=== PATIENT | female | born 1935 | race Caucasian/White ===

== ENCOUNTER 2016-08-06 09:54 | Outpatient (CLI) | payer MEDICARE ==
[2016-08-06 10:22] LABS: Prothrombin Time 27.9 SEC (12.0-14.7)
== END 2016-08-06 09:55 | disposition home or self-care (01) ==
LOC: BURLAB 09:54
PROVIDERS: ATTEND Nurse Practitioner
DX: I48.0 Paroxysmal atrial fibrillation (principal)
CPT/HCPCS: 36415; 85610

== ENCOUNTER 2016-09-03 09:44 | Outpatient (CLI) | payer MEDICARE ==
[2016-09-03 10:05] LABS: Prothrombin Time 36.6 SEC (12.0-14.7)
== END 2016-09-03 09:45 | disposition home or self-care (01) ==
LOC: BURLAB 09:44
PROVIDERS: ATTEND Nurse Practitioner
DX: I48.0 Paroxysmal atrial fibrillation (principal)
CPT/HCPCS: 36415; 85610

== ENCOUNTER 2016-09-12 11:11 | Outpatient (CLI) | payer MEDICARE ==
[2016-09-12 11:44] LABS: Prothrombin Time 23.7 SEC (12.0-14.7)
== END 2016-09-12 11:12 | disposition home or self-care (01) ==
LOC: BURLAB 11:11
PROVIDERS: ATTEND Nurse Practitioner
DX: I48.0 Paroxysmal atrial fibrillation (principal)
CPT/HCPCS: 36415; 85610

== ENCOUNTER 2016-09-26 09:38 | Outpatient (CLI) | payer MEDICARE ==
[2016-09-26 10:04] LABS: Prothrombin Time 24.1 SEC (12.0-14.7)
== END 2016-09-26 09:39 | disposition home or self-care (01) ==
LOC: BURLAB 09:38
PROVIDERS: ATTEND Nurse Practitioner
DX: I48.0 Paroxysmal atrial fibrillation (principal)
CPT/HCPCS: 36415; 85610

== ENCOUNTER 2016-10-19 09:37 | Outpatient (CLI) | payer MEDICARE, OTHER ==
[2016-10-19 10:03] LABS: INR-International Normal Ratio 2.2; Prothrombin Time 24.4 SEC (12.0-14.7)
== END 2016-10-19 09:38 | disposition home or self-care (01) ==
LOC: BURLAB 09:37
PROVIDERS: ATTEND Nurse Practitioner
DX: I48.0 Paroxysmal atrial fibrillation (principal)
CPT/HCPCS: 36415; 85610

== ENCOUNTER 2016-11-14 09:12 | Outpatient (CLI) | payer MEDICARE, OTHER ==
[2016-11-14 09:37] LABS: INR-International Normal Ratio 1.9; Prothrombin Time 22.1 SEC (12.0-14.7)
== END 2016-11-14 09:13 | disposition home or self-care (01) ==
LOC: BURLAB 09:12
PROVIDERS: ATTEND Nurse Practitioner
DX: I48.0 Paroxysmal atrial fibrillation (principal)
CPT/HCPCS: 36415; 85610

== ENCOUNTER 2016-11-28 09:54 | Outpatient (CLI) | payer MEDICARE, OTHER ==
[2016-11-28 10:23] LABS: Prothrombin Time 22.9 SEC (12.0-14.7)
== END 2016-11-28 09:55 | disposition home or self-care (01) ==
LOC: BURLAB 09:54
PROVIDERS: ATTEND Nurse Practitioner
DX: I48.91 Unspecified atrial fibrillation (principal)
CPT/HCPCS: 36415; 85610

== ENCOUNTER 2016-12-11 09:38 | Outpatient (CLI) | payer MEDICARE, OTHER ==
[2016-12-11 10:24] LABS: INR-International Normal Ratio 2.1; Prothrombin Time 24.6 SEC (12.0-14.7)
== END 2016-12-11 09:39 | disposition home or self-care (01) ==
LOC: BURLAB 09:38
PROVIDERS: ATTEND Nurse Practitioner
DX: I48.0 Paroxysmal atrial fibrillation (principal)
CPT/HCPCS: 36415; 85610

== ENCOUNTER 2017-01-01 09:39 | Outpatient (CLI) | payer MEDICARE, OTHER ==
[2017-01-01 10:02] LABS: INR-International Normal Ratio 1.6; Prothrombin Time 19.8 SEC (12.0-14.7)
== END 2017-01-01 09:40 | disposition home or self-care (01) ==
LOC: BURLAB 09:39
PROVIDERS: ATTEND Nurse Practitioner
DX: I48.0 Paroxysmal atrial fibrillation (principal)
CPT/HCPCS: 36415; 85610

== ENCOUNTER 2017-01-15 09:37 | Outpatient (CLI) | payer MEDICARE, OTHER ==
[2017-01-15 10:05] LABS: INR-International Normal Ratio 1.6; Prothrombin Time 19.9 SEC (12.0-14.7)
== END 2017-01-15 09:38 | disposition home or self-care (01) ==
LOC: BURLAB 09:37
PROVIDERS: ATTEND Nurse Practitioner
DX: I48.0 Paroxysmal atrial fibrillation (principal)
CPT/HCPCS: 36415; 85610

== ENCOUNTER 2017-01-30 09:16 | Outpatient (CLI) | payer MEDICARE, OTHER ==
[2017-01-30 09:53] LABS: INR-International Normal Ratio 2.1; Prothrombin Time 24.3 SEC (12.0-14.7)
== END 2017-01-30 09:17 | disposition home or self-care (01) ==
LOC: BURLAB 09:16
PROVIDERS: ATTEND Nurse Practitioner
DX: I48.0 Paroxysmal atrial fibrillation (principal)
CPT/HCPCS: 36415; 85610

== ENCOUNTER 2017-02-19 09:02 | Outpatient (CLI) | payer MEDICARE, OTHER ==
[2017-02-19 09:24] LABS: INR-International Normal Ratio 1.5; Prothrombin Time 18.3 SEC (12.0-14.7)
== END 2017-02-19 09:03 | disposition home or self-care (01) ==
LOC: BURLAB 09:02
PROVIDERS: ATTEND Nurse Practitioner
DX: I48.91 Unspecified atrial fibrillation (principal)
CPT/HCPCS: 36415; 85610

== ENCOUNTER 2017-03-05 09:33 | Outpatient (CLI) | payer MEDICARE, OTHER ==
[2017-03-05 09:56] LABS: INR-International Normal Ratio 1.8; Prothrombin Time 21.7 SEC (12.0-14.7)
== END 2017-03-05 09:34 | disposition home or self-care (01) ==
LOC: BURLAB 09:33
PROVIDERS: ATTEND Nurse Practitioner
DX: Z51.81 Encounter for therapeutic drug level monitoring (principal); I48.0 Paroxysmal atrial fibrillation; Z79.01 Long term (current) use of anticoagulants
CPT/HCPCS: 36415; 85610

== ENCOUNTER 2017-03-14 09:30 | Outpatient (CLI) | payer MEDICARE, OTHER ==
[2017-03-14 09:48] LABS: Bilirubin Negative (Negative); Blood, Urine Large (Negative); Clarity Turbid (Clear); Glucose, Urine (Dipstick) Negative (Negative); Leukocyte Large (Negative); Nitrite Positive (Negative); Protein, Urine (Dipstick) 30 mg/dL (Neg-Trace); Urobilinogen 0.2 mg/dL (0.2-1.0)
[2017-03-14 10:36] LABS: Bacteria/HPF 3+ HPF (None Seen); RBC/HPF 0-3 HPF (0-3); Squamous Epithelial None Seen HPF (0-3)
== END 2017-03-14 09:31 | disposition home or self-care (01) ==
LOC: BURLAB 09:30
PROVIDERS: ATTEND Internal Medicine
DX: N39.0 Urinary tract infection, site not specified (principal)
CPT/HCPCS: 81001; 87077; 87086; 87186

== ENCOUNTER 2017-03-19 09:36 | Outpatient (CLI) | payer MEDICARE, OTHER ==
[2017-03-19 09:58] LABS: INR-International Normal Ratio 1.8; Prothrombin Time 21.6 SEC (12.0-14.7)
== END 2017-03-19 09:37 | disposition home or self-care (01) ==
LOC: BURLAB 09:36
PROVIDERS: ATTEND Nurse Practitioner
DX: I48.0 Paroxysmal atrial fibrillation (principal)
CPT/HCPCS: 36415; 85610

== ENCOUNTER 2017-03-26 10:32 | Outpatient (CLI) | payer MEDICARE, OTHER ==
[2017-03-26 13:05] LABS: INR-International Normal Ratio 2.3; Prothrombin Time 26.2 SEC (12.0-14.7)
== END 2017-03-26 10:33 | disposition home or self-care (01) ==
LOC: BURLAB 10:32
PROVIDERS: ATTEND Nurse Practitioner
DX: I48.0 Paroxysmal atrial fibrillation (principal)
CPT/HCPCS: 36415; 85610

== ENCOUNTER 2022-06-22 15:49 | Emergency (ER) | payer MEDICARE ==
[2022-06-22] MEDS ORDERED: Lidocaine 1% (PF) 30 ML VIAL ONE (17:15)
== END 2022-06-22 17:51 | disposition home or self-care (01) ==
LOC: BURERS 15:49
DX: S01.01XA Laceration without foreign body of scalp, initial encounter (principal); W19.XXXA Unspecified fall, initial encounter; I10 Essential (primary) hypertension
CPT/HCPCS: 12002; 70450; 71046; 72125; J2001

== ENCOUNTER 2022-06-29 11:09 | Emergency (ER) | payer MEDICARE | END 2022-06-29 12:31 | disposition home or self-care (01) | LOC: BURERS 11:09 | DX: S01.01XD Laceration without foreign body of scalp, subsequent encounter (principal); I10 Essential (primary) hypertension; W19.XXXD Unspecified fall, subsequent encounter ==

== ENCOUNTER 2022-07-03 06:09 | Emergency (ER) | payer MEDICARE ==
[2022-07-03 07:07] LABS: #Basophils 0.1 thou/uL (0.0-0.2); #Eosinphils 0.1 thou/uL (0.0-0.7); #Lymphocytes 0.6 thou/uL (1.20-3.40); #Monocytes 1.1 thou/uL (0.11-0.59); #Neutrophils 7.9 thou/uL (1.40-6.50); %Basophils 0.6 % (0.0-1.0); %Eosinophils 0.6 % (0.0-10.0); %Lymphocytes 6.5 % (21.0-51.0); %Monocytes 10.9 % (0.0-10.0); %Neutrophils 81.4 % (42.0-75.0); Hemoglobin 10.3 g/dL (12.0-16.0); Mean Corpuscular HGB CONC 33.5 g/dL (32.0-36.0); Mean Corpuscular Hemoglobin 31.3 pg (27.0-31.0); Mean Corpuscular Volume 93.5 fl (78.0-98.0); Mean Platelet Volume 8.9 fL (7.4-10.4); Platelet Count 225 10x3/uL (130-400); RBC Distribution Width 14.5 % (11.5-14.5); Red Blood Cell (RBC) Count 3.28 mill/uL (4.20-5.40); White Blood Cell (WBC) Count 9.7 10x3/uL (4.8-10.8)
[2022-07-03 07:22] LABS: ALT (SGPT) 19 U/L (8-55); AST (SGOT) 18 U/L (5-34); Albumin 3.4 g/dL (3.4-4.8); Alkaline Phosphatase 66 U/L (40-110); Anion Gap 12 mmol/L (10-20); BUN (Urea Nitrogen) 13 mg/dL (9.8-20.1); Bilirubin, Total 0.7 mg/dL (0.2-1.2); CK (CPK) 93 U/L (29-168); Calc. Creatinine Clearance 0 mL/min (70-130); Calcium 9.2 mg/dL (7.8-10.44); Carbon Dioxide 30 mmol/L (23-31); Chloride 99 mmol/L (98-107); Estimated GFR 85; Globulin 4.1 g/dL (2.4-3.5); Glucose 96 mg/dL (83-110); Potassium 3.2 mmol/L (3.5-5.1); Protein, Total 7.5 g/dL (5.8-8.1); Sodium 138 mmol/L (136-145)
[2022-07-03 07:26] LABS: Bilirubin Negative (Negative); Blood, Urine Large (Negative); Clarity Clear (Clear); Glucose, Urine (Dipstick) Negative (Negative); Ketone, Urine Negative (Negative); Leukocyte Negative (Negative); Nitrite Negative (Negative); Protein, Urine (Dipstick) Trace mg/dL (Neg-Trace); Urobilinogen 0.2 mg/dL (Less than 2)
[2022-07-03] MEDS ORDERED: Potassium Chloride 20 MEQ TAB ONE (07:32)
[2022-07-03] MEDS ORDERED: Ketorolac Tromethamine 30 MG/ML VIAL ONE (07:32)
[2022-07-03 07:34] LABS: WBC/HPF 0-3 HPF (0-3)
[2022-07-03 07:35] LABS: Bacteria/HPF Rare-Few HPF (None Seen); Squamous Epithelial 0-3 HPF (0-3)
== END 2022-07-03 09:07 | disposition home or self-care (01) ==
LOC: BURERS 06:09
DX: S32.020A Wedge compression fracture of second lumbar vertebra, initial encounter for closed fracture (principal); S22.081A Stable burst fracture of T11-T12 vertebra, initial encounter for closed fracture; E86.0 Dehydration; I48.91 Unspecified atrial fibrillation; I10 Essential (primary) hypertension; E87.6 Hypokalemia; E03.9 Hypothyroidism, unspecified; Z79.899 Other long term (current) drug therapy; W19.XXXA Unspecified fall, initial encounter
CPT/HCPCS: 72131; 72192; 80053; 81003; 81015; 82550; 83880; 84484; 85025; 93005; 96361; 96374; J1885

== ENCOUNTER 2022-11-07 13:44 | Emergency (ER) | payer MEDICARE ==
[2022-11-07] MEDS ORDERED: Acetaminophen 325 MG TAB ONE (17:29)
[2022-11-07 19:01] LABS: Bilirubin Small (Negative); Blood, Urine Small (Negative); Clarity Clear (Clear); Glucose, Urine (Dipstick) Negative (Negative); Ketone, Urine Negative (Negative); Leukocyte Negative (Negative); Nitrite Negative (Negative); Protein, Urine (Dipstick) Negative (Neg-Trace); Specific Gravity, Urine 1.015 (1.005-1.030); pH, Urine 6.5 (5.0-9.0)
[2022-11-07 19:07] LABS: Bacteria/HPF 2+ HPF (None Seen); Squamous Epithelial 0-3 HPF (0-3); WBC/HPF 0-3 HPF (0-3)
== END 2022-11-07 19:40 | disposition home or self-care (01) ==
LOC: BURERS 13:44
DX: K59.00 Constipation, unspecified (principal); E03.9 Hypothyroidism, unspecified; I10 Essential (primary) hypertension
CPT/HCPCS: 51701; 74022; 81003; 81015; 82274; 87086